=== PATIENT | female | born 1990 | race Caucasian/White ===

== ENCOUNTER 2016-12-23 23:36 | Inpatient (IN) ==
[2016-12-24] MEDS ORDERED: NS 1,000 ML IV ONE ×3 (00:06→01:59)
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
[2016-12-24] MEDS ORDERED: NS 1,000 ML ONE ×2 (00:28→01:25)
[2016-12-24 00:44] LABS: MANUAL DIFF NEEDED? NO
[2016-12-24 00:56] LABS: BASO% 1.8 % (0.0-0.8); EOS# 0.41 X1000 (0.0-0.7); HEMATOCRIT 42.8 % (37.0-47.0); HEMOGLOBIN 14.9 g/dL (12.0-16.0); IMM GRAN# 0.05 X1000 (0.0-0.04); IMM GRAN% 0.6 % (0.0-0.5); LYMPH# 2.32 X1000 (1.2-3.4); LYMPH% 28.1 % (20.5-51.1); MCHC 34.8 g/dL (33-37); MCV 86.3 FL (81-99); MONO# 0.47 X1000 (0.11-0.59); MONO% 5.7 % (1.7-9.3); MPV 10.7 FL (7.4-10.4); NEUT% 58.8 % (42.2-75.2); PLT 257 X1000 (130-400); RBC 4.96 XMIL (4.2-5.4)
[2016-12-24] MEDS ORDERED: PHENERGAN ONE (01:03)
[2016-12-24] MEDS ORDERED: PHENERGAN IV ONE ×2 (01:03→02:03)
[2016-12-24] MEDS ORDERED: SODIUM CHLORIDE 0.9% INJ ONE ×2 (01:03→02:03)
[2016-12-24 01:16] LABS: ACETONE SERUM SMALL (NEGATIVE); AGAP 13; ALBUMIN 4.2 g/dL (3.5-5.0); ALKALINE PHOSPHATASE 138 U/L (32-104); BUN 22 mg/dL (8-22); CALCIUM 9.4 mg/dL (8.8-10.2); CHLORIDE 92 mmol/L (98-107); COSMO 277; GOT 12 U/L (10-30); POTASSIUM 4.6 mmol/L (3.5-5.1); SODIUM 125 mmol/L (136-145); TCO2 19 mmol/L (25-35); TOTAL PROTEIN 8.1 g/dL (6.3-8.3)
[2016-12-24] MEDS ORDERED: HUMALOG DOSE (PARKWAY) IV ONE (01:26)
[2016-12-24] MEDS ORDERED: HUMALOG (PARKWAY) ONE (01:29)
[2016-12-24 01:35] LABS: BLOOD TYPE ARTERIAL; DRAW SITE R BRACHIAL; O2(CT) 19.9 mL/dL (15.0-23.0); PCO2(98.6) 35 mmHg (35-45); PO2(98.6) 94 mmHg (60-100); SAMPLE BLOOD; SAO2 98.4 % (95.0-100.0); THB 14.7 g/dL (11.5-17.4); pH(98.6) 7.37 (7.35-7.45)
[2016-12-24] MEDS ORDERED: TORADOL IV ONE (01:37)
[2016-12-24 01:38] LABS: ALLEN TEST YES; MODALITY ROOM AIR
[2016-12-24] MEDS ORDERED: TORADOL ONE (01:38)
[2016-12-24 01:39] LABS: BILIRUBIN URINE NEGATIVE (NEGATIVE); BLOOD URINE NEGATIVE (NEGATIVE); CLARITY CLEAR (CLEAR); COLOR STRAW; LEUKOCYTES URINE NEGATIVE (NEGATIVE); NITRITE URINE NEGATIVE (NEGATIVE); PH URINE 6.5; PROTEIN URINE NEGATIVE (NEGATIVE); UROBILINOGEN URINE NORMAL
[2016-12-24 01:53] LABS: URINE EPITHELIAL CELLS <10 /HPF (<10); URINE WBC <10 /HPF (<10)
[2016-12-24 01:54] LABS: URINE CULTURE PL NEEDED? YES; URINE SOURCE CLEAN CATCH
[2016-12-24] MEDS ORDERED: NUBAIN IV ONE (02:03)
[2016-12-24] MEDS ORDERED: HUMULIN R (PARKWAY) 100 UNITS in NS 100 ML IV SCH (02:15)
[2016-12-24 02:52] LABS: GPT 12 U/L (10-36)
[2016-12-24] MEDS ORDERED: HUMULIN R DOSE (PARKWAY) ONE (03:49)
[2016-12-24] MEDS: NUBAIN IV PRN ×5 (05:17→23:42)
[2016-12-24 06:33] LABS: AMYLASE 29 U/L (20-200); LIPASE 19 U/L (13-60)
[2016-12-24 06:39] LABS: AGAP 11; BUN 20 mg/dL (8-22); CALCIUM 8.3 mg/dL (8.8-10.2); CHLORIDE 103 mmol/L (98-107); COSMO 283; MAGNESIUM 1.7 mg/dL (1.5-2.7); POTASSIUM 3.8 mmol/L (3.5-5.1); SODIUM 136 mmol/L (136-145); TCO2 23 mmol/L (25-35)
[2016-12-24 10:25] LABS: CHLORIDE 106 mmol/L (98-107); POTASSIUM 3.8 mmol/L (3.5-5.1); SODIUM 138 mmol/L (136-145)
[2016-12-24 10:38] LABS: AGAP 10; BUN 20 mg/dL (8-22); COSMO 285; MAGNESIUM 1.7 mg/dL (1.5-2.7); TCO2 23 mmol/L (25-35)
[2016-12-24] MEDS: SODIUM CHLORIDE 0.9% INJ SCH ×2 (11:23→20:47)
[2016-12-24] MEDS: PROTONIX IV SCH ×2 (11:23→20:47)
[2016-12-24 11:41] LABS: BE -4.3 mmoll (-3.0-3.0)
[2016-12-24] MEDS: HUMALOG DOSE (PARKWAY) SUBQ SCH ×3 (13:31→20:48)
[2016-12-24 14:46] LABS: AGAP 10; BUN 20 mg/dL (8-22); CALCIUM 8.1 mg/dL (8.8-10.2); COSMO 277; MAGNESIUM 1.7 mg/dL (1.5-2.7); TCO2 21 mmol/L (25-35)
[2016-12-24 15:06] LABS: CHLORIDE 106 mmol/L (98-107); SODIUM 136 mmol/L (136-145)
[2016-12-24 17:54] LABS: AGAP 13; BUN 19 mg/dL (8-22); CALCIUM 7.9 mg/dL (8.8-10.2); CHLORIDE 102 mmol/L (98-107); COSMO 282; MAGNESIUM 1.5 mg/dL (1.5-2.7); SODIUM 134 mmol/L (136-145); TCO2 20 mmol/L (25-35)
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
[2016-12-24] MEDS: LANTUS INSULIN (PARKWAY) SUBQ SCH (20:47)
[2016-12-24 22:22] LABS: AGAP 14; BUN 17 mg/dL (8-22); CALCIUM 8.3 mg/dL (8.8-10.2); CHLORIDE 103 mmol/L (98-107); COSMO 278; MAGNESIUM 1.7 mg/dL (1.5-2.7); POTASSIUM 3.6 mmol/L (3.5-5.1); SODIUM 137 mmol/L (136-145); TCO2 20 mmol/L (25-35)
[2016-12-25] MEDS: ZOFRAN IV PRN ×2 (03:57→09:03)
[2016-12-25] MEDS: NUBAIN IV PRN ×3 (03:57→18:05)
[2016-12-25] MEDS: HUMALOG DOSE (PARKWAY) SUBQ SCH ×2 (06:30→17:58)
[2016-12-25] MEDS: PROTONIX IV SCH (09:03)
[2016-12-25] MEDS: LANTUS INSULIN (PARKWAY) SUBQ SCH (09:58)
--- NOTE | 2016-12-25 11:49 | Diag Imaging Result Document ---
PROCEDURE NAME: US ABDOMEN-COMPLETE - 12/25/2016 ABDOMINAL ULTRASOUND: INDICATION: Abdominal pain. FINDINGS: The midline abdominal structures are obscured by bowel gas artifact. The abdominal aorta and IVC are unremarkable. The liver appears normal in size and echotexture. The spleen is unremarkable. The kidneys appear normal bilaterally. No masses or hydronephrosis. The gallbladder is free of stones and sludge and has a normal caliber wall. The common bile duct measures 4 mm. IMPRESSION: No acute abnormalities.
[2016-12-25] MEDS ORDERED: NS 1,000 ML IV SCH (20:57)
[2016-12-26] MEDS: HUMALOG DOSE (PARKWAY) SUBQ SCH ×3 (00:57→14:23)
[2016-12-26] MEDS: LANTUS INSULIN (PARKWAY) SUBQ SCH ×2 (00:57→11:50)
[2016-12-26] MEDS: NUBAIN IV PRN ×2 (00:57→06:20)
[2016-12-26] MEDS: PROTONIX IV SCH ×2 (00:57→11:50)
[2016-12-26 06:17] LABS: HEMATOCRIT 39.5 % (37.0-47.0); HEMOGLOBIN 13.4 g/dL (12.0-16.0); MCH 30.2 PG (27-31); MCHC 33.9 g/dL (33-37); MCV 89.2 FL (81-99); MPV 10.9 FL (7.4-10.4); RBC 4.43 XMIL (4.2-5.4)
[2016-12-26 06:31] LABS: AGAP 11; ALBUMIN 3.3 g/dL (3.5-5.0); ALKALINE PHOSPHATASE 137 U/L (32-104); BUN 12 mg/dL (8-22); CALCIUM 8.5 mg/dL (8.8-10.2); CHLORIDE 100 mmol/L (98-107); COSMO 285; GOT 10 U/L (10-30); GPT 10 U/L (10-36); MAGNESIUM 1.6 mg/dL (1.5-2.7); POTASSIUM 4.9 mmol/L (3.5-5.1); SODIUM 133 mmol/L (136-145); TCO2 22 mmol/L (25-35); TOTAL PROTEIN 6.2 g/dL (6.3-8.3)
[2016-12-26 11:02] VITALS: BP 124/84
--- NOTE | 2016-12-26 11:07 | Diag Imaging Result Document ---
PROCEDURE NAME: CT ABD/PELVIS W/ IV CONT ONLY - 12/26/2016 CT ABDOMEN AND PELVIS WITH INTRAVENOUS CONTRAST: TECHNIQUE: Dose reduction protocol. COMPARISON: 10/17/2015. FINDINGS: There is mild fatty infiltration of the liver. Calcifications in the right lobe of the liver are unchanged from the prior exam. The gallbladder is contracted. Normal spleen, pancreas, and adrenal glands. There is scarring to the right kidney and the right kidney is atrophic. Normal left kidney. No hydronephrosis. Normal aorta. There is an inferior vena caval filter. No bowel obstruction. I believe the appendix has been removed. No abscess. There is stool throughout the colon. No free air. Normal uterus. There is a 2.8 cm left ovarian cyst. Prior orthopedic surgery to the right pelvis and left femur. 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 IMPRESSION: 1. Constipation. 2. Scarring to the medial and upper right kidney. 3. Left ovarian cyst. 4. Appendectomy. A preliminary report was given at 10:42 a.m. MTDD
[2016-12-26] MEDS ORDERED: LACTULOSE PO ONE (11:45)
[2016-12-26] MEDS: CARAFATE PO SCH ×2 (11:49→14:32)
--- NOTE | 2016-12-26 11:58 | PROGRESS NOTE ---
DATE: 12/26/2016 SUBJECTIVE: The patient notes that she is feeling a little bit better this morning. Still having some abdominal pain but notes that it is tremendously better than last night. She is eager to try to start drinking and hopes to go home later. PHYSICAL: Temp 98 degrees, pulse 89, respiratory 16, BP 195/56 to 127/84. Sat 100% on room air.General: Patient is awake, alert. She is currently in no respiratory distress. Speech is regular. Memory is intact. Neck: Supple. CV: Regular rate. Chest: Clear. Abdomen: Much less tender than last night's exam. Positive bowel sounds. Extremities: Moves all extremities. Neurologic: No changes. ASSESSMENT: 1. Abdominal pain. 2. DKA resolved. We will stop insulin drip. 3. Nausea, vomiting appears to be improved. 4. Chronic kidney disease stable. 5. Diabetes type 1. PLAN: We will advance diet today and hopefully home later this afternoon. We will recheck on her this evening. Addendum: Patient's abdominal pain has come back. She has started vomiting and her blood sugars have increased to 300-400. Therefore, we will hold her tonight, give her IV fluids. Recheck in the a.m. and follow. cc: Hunter Lazcano MD
--- NOTE | 2016-12-26 12:16 | PROGRESS NOTE ---
DATE: 12/26/2016 SUBJECTIVE: Patient notes her abdominal pain is a little bit better. This likely has a large amount to do with her blood sugar. As her abdominal pain went up, her blood sugar also increased. Both are better this morning. CT of the abdomen was essentially negative, with the exception of constipation. PHYSICAL EXAMINATION: Temperature 98.1 degrees, pulse 89, respiratory rate 16, blood pressure 122/62.General: Patient is awake, alert. She is currently in no respiratory distress. Neck: Supple. Cardiovascular: Regular rate. Chest: Clear. Abdomen: Much less tender. Extremities: Moves all extremities. Neurologic: No changes. ASSESSMENT: 1. Abdominal pain. CT is essentially negative except for constipation. We will add lactulose this morning to see if we can get her bowels moving. We will advance her diet, stop her Nubain, and stop her IV fluids this morning. Hopefully, home later this afternoon. 2. Diabetes, type 1. cc: Hunter Lazcano MD
--- NOTE | 2017-01-02 17:01 | DISCHARGE SUMMARY ---
ADMISSION DATE: 12/24/2016 DISCHARGE DATE: 12/26/2016 DISCHARGE DIAGNOSES: 1. Gastroenteritis resolved. 2. Insulin-dependent type 1 diabetes. 3. Nausea and vomiting resolved. 4. Abdominal pain resolved. 5. Obesity. CONSULTATIONS: None. PROCEDURE: None. BRIEF HOSPITAL COURSE: The patient is a 26-year-old female who was admitted as noted on the HPI. She was admitted initially with abdominal pain, nausea and vomiting. Shortly thereafter her blood sugar rapidly elevated as did her acetone level become positive and, therefore, she was transferred to the ICU and placed on insulin drip. She continued to improve. Her abdominal pain actually resolved. She started drinking, however, 24 hours after stopping the insulin drip her blood sugar again went to the 450-500 range. At that point her abdominal pain came back. She was not restarted on insulin drip at that time. She was able to be much quicker and placed on higher dose insulin. On discharge, she is awake, alert. She is in no distress. She was able to ambulate the gonzalez. She was getting back to her usual self, stating that she is feeling better and was asking to go home. I discussed with patient she needs to make sure that she follows her blood sugars on a frequent basis and keep her blood sugar low. It is likely the cause of her acute abdominal pain. Her recently had gastroenteritis which certainly could have triggered her as well. Thankfully at this point she is back to her usual self. She is eating without any difficulty and, therefore, she will be discharged home. DISPOSITION: The patient will be discharged home. TIME SPENT: 34 minutes was spent in discharge planning and instructions. cc: Hunter Lazcano MD
== END 2016-12-26 14:40 | disposition home or self-care (01) ==
LOC: P.ED 23:36 → P.ICU 12-24 03:25 → P.MEDSURG 12-24 21:43
PROVIDERS: ADMIT Family Medicine; ATTEND Family Medicine

== ENCOUNTER 2018-10-12 20:29 | Inpatient (IN) ==
[2018-10-12] MEDS ORDERED: NS 1,000 ML IV ONE ×2 (21:51→22:53)
[2018-10-12] MEDS ORDERED: REGLAN IV ONE (21:54)
[2018-10-12] MEDS ORDERED: TORADOL IV ONE (21:54)
[2018-10-12 22:13] LABS: BASO# 0.01 X1000 (0.0-0.2); BASO% 0.1 % (0.0-0.8); EOS% 0.7 % (0.0-10.0); HEMATOCRIT 45.2 % (37.0-47.0); HEMOGLOBIN 15.6 g/dL (12.0-16.0); LYMPH# 0.68 X1000 (1.2-3.4); LYMPH% 4.8 % (20.5-51.1); MCH 29.5 PG (27-31); MCHC 34.5 g/dL (33-37); MCV 85.4 FL (81-99); MONO# 0.76 X1000 (0.11-0.59); MONO% 5.4 % (1.7-9.3); MPV 11.7 FL (7.4-10.4); NEUT# 12.57 X1000 (1.4-6.5); PLT 246 X1000 (130-400); RBC 5.29 XMIL (4.2-5.4); RDW 12.1 % (11.5-14.5); WBC 14.12 X1000 (4.8-10.8)
[2018-10-12 22:26] LABS: URINE SOURCE CLEAN CATCH
[2018-10-12 22:42] LABS: BILIRUBIN URINE NEGATIVE (NEGATIVE); BLOOD URINE NEGATIVE (NEGATIVE); COLOR YELLOW; GLUCOSE URINE >1000 mg/dL (NEGATIVE); KETONE URINE 150 mg/dL (NEGATIVE); LEUKOCYTES URINE NEGATIVE (NEGATIVE); NITRITE URINE NEGATIVE (NEGATIVE); PROTEIN URINE TRACE mg/dL (NEGATIVE); SP GRAVITY URINE 1.031; TURBIDITY URINE CLEAR (CLEAR); UROBILINOGEN URINE NORMAL (NORMAL)
[2018-10-12 22:43] LABS: UR EPITHELIAL CELLS >10 /HPF (<10); URINE BACTERIA 2+ /HPF; URINE RBC <10 /HPF (<10); URINE WBC <10 /HPF (<10)
[2018-10-12 22:55] LABS: ALB/GLOB RATIO 1.2; ALBUMIN 4.1 g/dL (3.5-5.0); ALKALINE PHOSPHATASE 116 U/L (32-104); BUN 17 mg/dL (8-22); CHLORIDE 89 mmol/L (98-107); ESTIMATED GFR > 60; GOT 10 U/L (10-30); GPT 11 U/L (10-36); LIPASE 12 U/L (13-60); POTASSIUM 4.7 mmol/L (3.5-5.1); SODIUM 133 mmol/L (136-145); TCO2 21 mmol/L (25-35); TOTAL BILIRUBIN 0.59 mg/dL (0.20-1.00); TOTAL PROTEIN 7.4 g/dL (6.3-8.3)
[2018-10-12 22:56] LABS: GLUCOSE 578 mg/dL (70-104)
[2018-10-12] MEDS ORDERED: HUMULIN R SUBQ ONE (23:29)
[2018-10-13] MEDS ORDERED: D50W SYRINGE IV PRN (00:13)
[2018-10-13] MEDS ORDERED: MAGNESIUM SULFATE 2 GM/S.W.I. 2 GM/50 ML IVPB IV PRN (00:13)
[2018-10-13] MEDS ORDERED: SODIUM BICARBONATE 8.4% 100 MEQ in D5W 500 ML IV PRN (00:13)
[2018-10-13] MEDS ORDERED: SODIUM BICARBONATE 8.4% 50 MEQ in D5W 250 ML IV PRN (00:13)
[2018-10-13] MEDS ORDERED: SODIUM PHOSPHATE 30 MMOL in D5W 250 ML IV PRN (00:13)
[2018-10-13] MEDS ORDERED: D5 NS 1,000 ML IV SCH (00:13)
[2018-10-13] MEDS: NS 1,000 ML IV SCH ×4 (00:35→23:43)
[2018-10-13] MEDS: HUMULIN R 100 UNIT in NS 99 ML IV SCH ×3 (00:40→06:36)
[2018-10-13 01:02] LABS: ALLEN TEST YES; BE -8.1 mmoll (-3.0-3.0); BLOOD TYPE ARTERIAL; HCO3-(ACT) 18.5 mmoll (20.0-26.0); METHB 1.2 % (0.0-1.5); O2(CT) 19.4 mL/dL (15.0-23.0); O2HB 94.8 % (95.0-99.0); PCO2(98.6) 29 mmHg (35-45); PO2(98.6) 83 mmHg (60-100); SAMPLE BLOOD; SAO2 97.7 % (95.0-100.0); THB 14.5 g/dL (11.5-17.4); pH(98.6) 7.35 (7.35-7.45)
[2018-10-13 01:03] LABS: MODALITY ROOM AIR
[2018-10-13] MEDS: DEMEROL IV PRN ×3 (02:05→23:44)
[2018-10-13] MEDS ORDERED: SODIUM CHLORIDE 0.9% INJ PRN (02:20)
[2018-10-13 02:35] LABS: AGAP 22; BUN 19 mg/dL (8-22); CALCIUM 7.7 mg/dL (8.8-10.2); CHLORIDE 97 mmol/L (98-107); COSMO 291; CREATININE 0.8 mg/dL (0.5-0.9); ESTIMATED GFR > 60; SODIUM 135 mmol/L (136-145); TCO2 16 mmol/L (25-35)
[2018-10-13 02:37] LABS: GLUCOSE 437 mg/dL (70-104)
[2018-10-13] MEDS: PHENERGAN IV PRN ×2 (02:40→18:41)
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
[2018-10-13 06:12] LABS: MAGNESIUM 1.2 mg/dL (1.5-2.7); PHOSPHORUS 2.4 mg/dL (2.7-4.5)
[2018-10-13 06:38] LABS: BASO# 0.01 X1000 (0.0-0.2); BASO% 0.1 % (0.0-0.8); EOS# 0.01 X1000 (0.0-0.7); EOS% 0.1 % (0.0-10.0); HEMATOCRIT 41.5 % (37.0-47.0); HEMOGLOBIN 13.9 g/dL (12.0-16.0); IMM GRAN# 0.03 X1000 (0.0-0.04); IMM GRAN% 0.3 % (0.0-0.5); LYMPH# 0.55 X1000 (1.2-3.4); LYMPH% 5.6 % (20.5-51.1); MCH 28.7 PG (27-31); MCHC 33.5 g/dL (33-37); MCV 85.7 FL (81-99); MONO# 0.49 X1000 (0.11-0.59); MONO% 4.9 % (1.7-9.3); MPV 11.5 FL (7.4-10.4); NEUT# 8.81 X1000 (1.4-6.5); PLT 210 X1000 (130-400); RBC 4.84 XMIL (4.2-5.4)
[2018-10-13 06:57] LABS: BANDS 2 % (0-1); EOS 2 % (1-10); LYMPHS 10 % (21-51); SEGS 86 % (42-75)
[2018-10-13 07:00] LABS: MAGNESIUM 1.2 mg/dL (1.5-2.7); PHOSPHORUS 2.1 mg/dL (2.7-4.5)
[2018-10-13 07:24] LABS: AGAP 15; BUN 18 mg/dL (8-22); CALCIUM 7.6 mg/dL (8.8-10.2); CHLORIDE 101 mmol/L (98-107); COSMO 284; CREATININE 0.8 mg/dL (0.5-0.9); ESTIMATED GFR > 60; GLUCOSE 244 mg/dL (70-104); POTASSIUM 4.1 mmol/L (3.5-5.1); SODIUM 137 mmol/L (136-145); TCO2 21 mmol/L (25-35)
--- NOTE | 2018-10-13 08:07 | EKG Report ---
Test Performed on : 10/12/2018 9:30:00 PM Test Reason : NAUSEA Blood Pressure : / mmHG Vent. Rate : 152 BPM Atrial Rate : 152 BPM P-R Int : 122 ms QRS Dur : 068 ms QT Int : 332 ms P-R-T Axes : 053 060 030 degrees QTc Int : 527 ms Sinus tachycardia. Nonspecific T wave abnormality Abnormal ECG When compared with ECG of 05-JAN-2018 15:07, (Unconfirmed) Vent. rate has increased BY 57 BPM Nonspecific T wave abnormality no longer evident in Anterior leads Unconfirmed Result
--- NOTE | 2018-10-13 08:15 | Diag Imaging Result Doc PS360 ---
EXAM: FLAT/UPRIGHT ABD/1 VIEW CHEST 10/13/2018 HISTORY: dka TECHNIQUE: Flat and upright abdomen with PA chest COMMENT: There is some gas and stool in the descending colon. There are some gas distended small bowel loops in the right upper quadrant. The stomach is not particularly distended. There is no evidence organomegaly or mass. There are posttraumatic and postsurgical changes in the right pelvis around the acetabulum. Compared to the previous examination of 09/05/2017 the dilatation of small bowel loops in the right upper quadrant was not present previously although there was some gas on the left side at that time. There is a vena cava filter which was present at the time the previous study. The appearance of the chest has not changed significantly. IMPRESSION: Questionable focal ileus in the right upper quadrant. Otherwise stable since 09/05/2017. Electronically signed by Jose L Pool 10/13/2018 8:13 AM
[2018-10-13 09:17] LABS: MAGNESIUM 1.5 mg/dL (1.5-2.7); PHOSPHORUS 2.6 mg/dL (2.7-4.5)
[2018-10-13] MEDS ORDERED: TYLENOL PO ONE (09:19)
[2018-10-13 09:20] LABS: AGAP 12; BUN 17 mg/dL (8-22); CALCIUM 7.5 mg/dL (8.8-10.2); CHLORIDE 102 mmol/L (98-107); COSMO 281; CREATININE 0.7 mg/dL (0.5-0.9); ESTIMATED GFR > 60; GLUCOSE 175 mg/dL (70-104); POTASSIUM 4.2 mmol/L (3.5-5.1); SODIUM 138 mmol/L (136-145); TCO2 24 mmol/L (25-35)
[2018-10-13 13:39] LABS: AGAP 10; BUN 17 mg/dL (8-22); CALCIUM 7.2 mg/dL (8.8-10.2); CHLORIDE 102 mmol/L (98-107); COSMO 276; CREATININE 0.6 mg/dL (0.5-0.9); ESTIMATED GFR > 60; GLUCOSE 142 mg/dL (70-104); MAGNESIUM 2.1 mg/dL (1.5-2.7); PHOSPHORUS 2.3 mg/dL (2.7-4.5); POTASSIUM 3.8 mmol/L (3.5-5.1); SODIUM 136 mmol/L (136-145); TCO2 24 mmol/L (25-35)
[2018-10-13] MEDS: BASAGLAR SUBQ SCH (14:50)
[2018-10-13] MEDS ORDERED: INSULIN PEN NEEDLES ONE (14:55)
[2018-10-13] MEDS ORDERED: FIORICET PO PRN (15:22)
[2018-10-13] MEDS ORDERED: FIORICET PO ONE (15:22)
[2018-10-13] MEDS: HUMULIN R SUBQ SCH ×3 (16:40→23:52)
[2018-10-13 18:15] LABS: AGAP 9; BUN 15 mg/dL (8-22); CALCIUM 7.3 mg/dL (8.8-10.2); CHLORIDE 103 mmol/L (98-107); COSMO 277; CREATININE 0.7 mg/dL (0.5-0.9); ESTIMATED GFR > 60; GLUCOSE 199 mg/dL (70-104); MAGNESIUM 1.9 mg/dL (1.5-2.7); PHOSPHORUS 1.7 mg/dL (2.7-4.5); POTASSIUM 3.7 mmol/L (3.5-5.1); SODIUM 135 mmol/L (136-145); TCO2 23 mmol/L (25-35)
[2018-10-13] MEDS ORDERED: SODIUM PHOSPHATE 30 MMOL in NS 250 ML IV ONE (18:29)
[2018-10-14] MEDS: DEMEROL IV PRN ×4 (05:36→22:04)
[2018-10-14 06:05] LABS: AGAP 10; BUN 9 mg/dL (8-22); CHLORIDE 106 mmol/L (98-107); COSMO 280; CREATININE 0.7 mg/dL (0.5-0.9); ESTIMATED GFR > 60; GLUCOSE 133 mg/dL (70-104); POTASSIUM 3.3 mmol/L (3.5-5.1); SODIUM 140 mmol/L (136-145); TCO2 24 mmol/L (25-35)
[2018-10-14 06:06] LABS: CALCIUM 6.9 mg/dL (8.8-10.2)
[2018-10-14] MEDS: HUMULIN R SUBQ SCH ×4 (06:32→21:56)
[2018-10-14] MEDS ORDERED: CALCIUM GLUCONATE 1 GM in NS 50 ML IV ONE (07:00)
[2018-10-14 07:23] LABS: ALBUMIN 2.9 g/dL (3.5-5.0); PHOSPHORUS 2.7 mg/dL (2.7-4.5)
[2018-10-14] MEDS ORDERED: IMODIUM PO ONE (07:42)
[2018-10-14] MEDS ORDERED: IMITREX PO ONE (07:42)
[2018-10-14] MEDS: CULTURELLE PO SCH ×2 (08:13→21:56)
[2018-10-14] MEDS: NS 1,000 ML IV SCH ×2 (08:15→16:10)
[2018-10-14] MEDS: BASAGLAR SUBQ SCH ×2 (08:19→18:22)
[2018-10-14] MEDS: PHENERGAN IV PRN ×3 (12:11→22:04)
--- NOTE | 2018-10-14 14:44 | PROGRESS NOTE ---
DATE: 10/14/2018 SUBJECTIVE: This morning, Ms. Mulligan referred to be doing a whole lot better, did not have any symptoms. However, this afternoon she did tell me that she was feeling nauseated. OBJECTIVE: Vital signs: Blood pressure is 113/81, pulse is 76, respiration is 16, temperature 97.9 degrees. General exam: Ms. Mulligan is a 28-year-old lady. She was in bed, no distress. HEENT: Mucosa was pink and moist. Anicteric. Acyanotic. Neck: Supple. Chest: Good air entry bilateral. There were no crepitations, no rhonchi. Cardiovascular: Regular rate and rhythm. No murmurs, no rubs, no gallops. Abdomen: Soft, nontender. Bowel sounds present. Extremities: No pedal edema. Distal pulses present. [employer]: Patient was awake, alert, oriented. There is no focal neurological deficit. LABORATORY DATA: Sodium is 140, potassium is 3.3, chloride is 106, bicarbonate is 24, gap is 10. Glucose was 133 this morning. So far, the stool studies have all been negative. ASSESSMENT: 1. Diabetic ketoacidosis on presentation resolved. 2. Gastroenteritis. The patient's stool studies have all been negative. We have given her a dose of Imodium and that seems to have improved on the diarrhea. 3. Migraine headaches. We will give the patient a dose of sumatriptan and follow up accordingly. 4. Obesity with body mass index of 41.3 noted. PLAN: So, in general, I think Ms. Mulligan is doing well. She started having some nausea this afternoon, after she had been pretty clinically stable for about a day or 2. I will keep her overnight just in case she begins to vomit, so she does not go into diabetic ketoacidosis again. We will transfer her from the [facility] to regular medical floor and continue monitoring her symptoms. cc: Luciano Boykin MD
[2018-10-15] MEDS: NS 1,000 ML IV SCH (00:45)
[2018-10-15] MEDS: PHENERGAN IV PRN ×2 (03:22→08:23)
[2018-10-15] MEDS: DEMEROL IV PRN ×2 (03:23→08:23)
[2018-10-15 06:40] LABS: HEMOGLOBIN A1C 10.2 % (4.8-6.0)
[2018-10-15] MEDS: HUMULIN R SUBQ SCH (06:49)
[2018-10-15 06:53] LABS: AGAP 12; BUN 6 mg/dL (8-22); CALCIUM 7.7 mg/dL (8.8-10.2); CHLORIDE 107 mmol/L (98-107); COSMO 275; CREATININE 0.6 mg/dL (0.5-0.9); ESTIMATED GFR > 60; GLUCOSE 196 mg/dL (70-104); POTASSIUM 4.1 mmol/L (3.5-5.1); SODIUM 136 mmol/L (136-145); TCO2 17 mmol/L (25-35)
[2018-10-15] MEDS: BASAGLAR SUBQ SCH (08:22)
[2018-10-15] MEDS: CULTURELLE PO SCH (08:22)
[2018-10-15 08:28] VITALS: BP 141/92
--- NOTE | 2018-10-16 13:55 | DISCHARGE SUMMARY ---
ADMISSION DATE: 10/13/2018 DISCHARGE DATE: 10/15/2018 DISPOSITION: Home. FOLLOW-UP: Hunter Lazcano MD CONSULTATIONS DURING THIS ADMISSION: None. INVASIVE PROCEDURES DONE DURING ADMISSION: None. IMAGING STUDIES OF SIGNIFICANCE: KUB was done which showed questionable focal ileus on the right upper quadrant. ADMISSION DIAGNOSES: 1. DKA. 2. Nausea, vomiting, diarrhea, consistent with gastroenteritis. 3. Leukocytosis. DIAGNOSIS AT THE TIME OF DISCHARGE: 1. DKA, resolved. 2. Type 1 diabetes mellitus. 3. Gastroenteritis with stool studies negative. 4. Migraine headaches. 5. Obesity with BMI of 41.3, weight loss management has been discussed. DISCHARGE MEDICATIONS: 1. Insulin glargine 20 units b.i.d. 2. Sliding scale insulin. 3. Fioricet 1 tablets q.4 p.r.n. 4. Lactobacillus. 5. Phenergan 25 mg p.o. q.6h p.r.n. 6. Imitrex 25 mg p.o. daily p.r.n. PRESENTING COMPLAINT: Nausea, vomiting and diarrhea. HISTORY OF PRESENTING COMPLAINT: Ms. Mulligan is a 28-year-old female known to have type 1 diabetes mellitus on insulin at home, follows up with Dr. Lazcano, who presented to the emergency department because of nausea and vomiting, diarrhea and generalized weakness for about a day. Upon presentation, patient was found to have a bicarb of 21 with a gap of 20, glucose was 578. She was subsequently admitted to the [facility] for DKA management. HOSPITAL COURSE: Ms. Mulligan responded well to the DKA protocol. She was adequately hydrated. Her glucose got normalized and gap also got normalized. She was subsequently transitioned to subcutaneous long-acting and sliding scale insulin and was transferred to the regular floor. She has been fairly normal. Gap has been closed. Glucose is under control and bicarb is also improved. Ms. Mulligan is therefore clinically stable and she is going to be discharged. She has been advised to be consistent with her insulin regimen and get a follow-up appointment with her primary care doctor. All the discharge instructions were discussed with her and she voiced understanding. TIME SPENT FOR DISCHARGE: 36 minutes. cc: MD Hunter Lemus MD
--- NOTE | 2018-10-18 04:58 | PROVIDER DOCUMENTATION ---
This chart was entered by Rick Cain Scribe, acting as scribe for Jus Casarez MD. HPI-Abdominal Pain/GI Problem - General Chief Complaint: Nausea/Vomiting Stated Complaint: N/V/D HEADACHE Time Seen by Provider: 10/12/18 21:37 Source: patient Allergies/Adverse Reactions: Patient Allergies Allergy/AdvReac Type Severity Reaction Status Date / Time morphine Allergy Intermediate ITCHING Verified 10/13/18 01:01 Home Medications: Home Medication List Medication Instructions Recorded Confirmed Last Taken Type Insulin Aspart [Novolog] See Protocol SQ DIRECTED 10/13/18 10/13/18 10/12/18 History Insulin Glargine,Hum.rec.anlog 20 unit SQ Q12H 10/13/18 10/13/18 10/12/18 History [Lantus Solostar] Butalbital/APAP/Caffeine [Fioricet] 1 ea PO Q4H PRN PRN #30 tab 10/15/18 Unknown Rx Insulin Glargine [Basaglar] 20 unit SUBQ BID PC insuln.pen 10/15/18 Unknown Rx Lactobacillus Rhamnosus GG 1 ea PO BID #30 cap 10/15/18 Unknown Rx [Culturelle] Promethazine [Phenergan] 25 mg PO Q6H PRN PRN #20 tab 10/15/18 Unknown Rx Sumatriptan [Imitrex] 25 mg PO PRN PRN #20 tab 10/15/18 Unknown Rx - History of Present Illness-ABD Nature of Presenting Problems: Pt is a 28 y/o F presents to the ED with N/V/D and headache that began this afternoon. Pt reports she has diabetes and she say that Zofran does not help when she has nausea. She does some report some suprapubic pain. Abdominal Pain Onset Location: reports: suprapubic Pain Radiation: reports: no radiation Quality of Pain: reports: aching Severity in ED: reports: mild Onset/Duration: reports: this afternoon Timing: reports: still present Activities at Onset: reports: none Exposure to sick contacts?: No Modifying Factors: improves with: nothing Associated Symptoms: reports: diarrhea, headaches, nausea, vomiting. denies: fever/chills Review of Systems - Adult - REVIEW OF SYSTEMS - ADULT Constitutional: denies: chills, fever Eyes: reports: no symptoms reported Ears, Nose, Mouth & Throat: reports: no symptoms reported Cardiovascular: reports: no symptoms reported Respiratory: reports: no symptoms reported Gastrointestinal: reports: abdominal pain, diarrhea, nausea, vomiting Genitourinary: reports: no symptoms reported Musculoskeletal: denies: back pain, neck pain Integumentary: reports: no symptoms reported Neurological: reports: headache/migraines. denies: dizziness/vertigo Psychiatric: reports: no symptoms reported Endocrine: reports: no symptoms reported Hematologic/Lymphatic: reports: no symptoms reported Allergic/Immunologic: reports: no symptoms reported All Other Systems: Reviewed and Negative Past History - Adult - PAST MEDICAL HISTORY-ADULT Review of Records: reports: Old Records Reviewed, Nursing Assessment Review, Medications Reviewed Major Childhood Illnesses: reports: denies history Cardiovascular: reports: denies history Respiratory: reports: denies history Gastrointestinal: reports: denies history Obstetrical/Gynecological: reports: denies history Genitourinary: reports: denies history Musculoskeletal: reports: other fractures (RIGHT ANKLE LEFT FEMURE 3 RIBS) Neurological: reports: headaches/migraines Endocrine/Immune: reports: Diabetes Other Conditions: reports: denies history - PRIOR SURGERIES/PROCEDURES Surgical/Procedure History: reports: appendectomy, , other (wisdom teeth) - IMMUNIZATION STATUS Childhood Immunizations: See Nurse Assessment Flu Vaccine: See Nurse Assessment - FAMILY HISTORY Family History: reviewed, not pertinent - SOCIAL HISTORY Smoking: non-smoker Substance Use: none/never Living Situation: family Physical Exam-General - CONSTITUTIONAL General Appearance: alert, anxious. negative: appears well (ill in appearance) - EYES Eyes: PERRL/EOMI, pink conjunctivae - HEAD, EARS, NOSE, MOUTH & THROAT HENMT: normal ENT inspection, pharynx normal - NECK Neck: non-tender, full range of motion, supple, normal inspection - RESPIRATORY Respiratory: lungs clear, normal breath sounds, no pleuratic chest pain, no respiratory distress, no accessory muscle use - CARDIOVASCULAR Cardiovascular: normal peripheral pulses, tachycardia - GASTROINTESTINAL (ABDOMEN) Abdominal Exam: normal bowel sounds, non tender, soft - MUSCULOSKELETAL Back Exam: normal inspection, no CVA tenderness, no vertebral tenderness Extremity: non-tender, normal gait, normal inspection - SKIN Integumentary: normal color, normal turgor, warm/dry - NEUROLOGIC Neurologic: grossly normal, no motor/sensory deficits - PSYCHIATRIC Psych/Mental Status: normal thought content, normal thought process, oriented x 3, anxious Progress - PLAN OF CARE/RESULTS Progress/Plan/Lab Results: Vital Signs - 8 hr 10/12/18 21:14 Temperature 98.3 F Pulse Rate 157 H Respiratory Rate 19 Blood Pressure 116/79 O2 Sat by Pulse Oximetry 100 Orders Category Date Time Status EKG [EKG] Stat Ther 10/12/18 21:16 Ordered Result Diagrams: 10/13/18 06:00 10/15/18 06:00 - EKG 1 Time of EKG reading by physician:: 21:30 EKG Read and Signed by:: Jus Casarez EKG Interpretation (*Must complete 3 of following elements*): Abnormal Rate: 152 Rhythm: Sinus Tach Comments: Nonspecfic T wave abnormality - CONSULTS/PCP/HOSPITALIST Notification #1 *Consult/PCP/Hospitalist*: Hospitalist- Dr Meyer Time Discussed: 23:47 Reason/Comments: admission Consult Disposition: Will see in ED (Accepts) Departure - Departure Date of Disposition Decision: 10/12/18 Time of Disposition Decision: 23:48 DIAGNOSIS: DKA, type 1, Vomiting Disposition: ADMITTED INPATIENT 09 Certified Medical Emergency: Emergent Condition: Stable - Critical Care Note This patient required my direct & personal management of CC.: No Attestation - Physician/ MONIK Attestation Patient care was provided by Advanced Practice Provider:: No The physician spent face to face time with patient:: Yes Advanced Practice Provider documentation review:: Supervising physician onsite and consulted in the evaluation and care of this patient. The physician did have a face to face encounter with the patient. This chart was documented by the indicated scribe, (Rick Cain Scribe) and accurately reflects the services I performed and decisions made by me, Jus Casarez MD, as attested by the provider's signature.
== END 2018-10-15 13:17 | disposition home or self-care (01) | DRG 638 ==
LOC: ED 20:29 → SUATTDRO 10-13 06:06 → EDIPHOLD 10-13 06:06 → 3S 10-13 09:05 → 4N 10-14 15:49
PROVIDERS: ATTEND Internal Medicine
CPT/HCPCS: 74022; 80048; 80053; 81001; 81025; 82009; 82040; 82270; 82805; 82948; 83036; 83605; 83630; 83690; 83735; 84100; 85025; 87045; 87046; 87177; 87205; 87324; 87427; 87798; 88313; 89055; 93005; 96361; 96365; 96375; 99285; A9270; J0610; J1885; J2175; J2550; J2765; J3475; J7030; J7050; XXXXX